=== PATIENT | male | born 1975 | race Caucasian/White ===

== ENCOUNTER 2021-03-11 11:08 | Emergency (ER) | payer OTHER, MEDICARE ==
[~2021-03-11] VITALS: Ht 172.7 cm; Wt 73.5 kg
--- NOTE | 2021-03-11 11:52 | PHYS DOC ---
Past History Additional Past Medical Histor: renal failure Past Surgical History: Other Additional Past Surgical Histo: kidney transplant, lasted 27 years, now failed, dialysis grafts General Adult EDM: Chief Complaint: SHORTNESS OF BREATH HPI: HPI: 46-year-old male presents with shortness of breath. He has been feeling more short of breath for the last couple of days. He is on dialysis due to failure of a kidney transplant. Transplant was 27 years ago. He had dialysis today but he still feels short of breath. He had a feeling like this once in the past and he had a pleural effusion. They drained it and told him not to worry about it. He never got official diagnosis as to why he had that effusion. Patient has elevated blood pressure but blood pressure medicines. He has been taking all his medicines as prescribed. He is not vaccinated against COVID-19. He has not previously had COVID-19. He does not believe he had a fever Review of Systems: Review of Systems: Constitutional: Denies fever or chills Eyes: Denies change in visual acuity HENT: Denies nasal congestion or sore throat Respiratory: shortness of breath Cardiovascular: Denies chest pain or edema GI: Denies abdominal pain, nausea, vomiting, bloody stools or diarrhea : Denies dysuria Musculoskeletal: Denies back pain or joint pain Integument: Denies rash Neurologic: Denies headache, focal weakness or sensory changes Endocrine: Denies polyuria or polydipsia Lymphatic: Denies swollen glands Psychiatric: Denies depression or anxiety Allergies: Allergies: Allergies Coded Allergies Type Severity Reaction Last Updated Verified shellfish derived Allergy Unknown 03/11/21 Yes Physical Exam: PE: Constitutional: Well developed, well nourished, no acute distress, non-toxic appearance. [] HENT: Normocephalic, atraumatic, bilateral external ears normal, oropharynx moist, no oral exudates, nose normal. [] Eyes: PERRLA, EOMI, conjunctiva normal, no discharge. [] Neck: Normal range of motion, no tenderness, supple, no stridor. [] Cardiovascular: Heart rate 83, regular rhythm, no murmur [] Lungs & Thorax: Diminished breath sounds left base [] Abdomen: Bowel sounds normal, soft, no tenderness, no masses, no pulsatile masses. [] Skin: Warm, dry, no erythema, no rash. [] Back: No tenderness, no CVA tenderness. [] Extremities: No tenderness, no cyanosis, no clubbing, ROM intact, no edema. [] Neurologic: Alert and oriented X 3, normal motor function, normal sensory function, no focal deficits noted. [] Psychologic: Affect normal, judgement normal, mood normal. [] Current Patient Data: Vital Signs: Vital Signs Date Time Temp Pulse Resp B/P (MAP) Pulse Ox O2 Delivery O2 Flow Rate FiO2 03/11/21 11:41 98.3 80 18 187/104 (131) 97 Room Air EKG: EKG: [] Radiology/Procedures: Radiology/Procedures: [] Impressions: EXAM: Chest, single view. HISTORY: Shortness of breath. COMPARISON: None. FINDINGS: A frontal view of the chest is obtained. There is diffuse right lower lobe predominant interstitial infiltrate. There are small right greater than left pleural effusions. There is cardiomegaly. There is a small nodular opacity overlying the lateral left lower lobe which is likely due to overlying osseous and pulmonary interstitial shadows. IMPRESSION: 1. Diffuse right lower lobe predominant interstitial infiltrate with small right greater than left pleural effusions. 2. Cardiomegaly. Electronically signed by: Cassidy Walters MD (03/11/2021 12:38 PM) [id number] DICTATED AND SIGNED BY: CASSIDY WALTERS MD DATE: 03/11/21 1237 CC: ELDER COPPOLA DO; ZOE GROSSMAN MD ~MTH0 0 Heart Score: C/O Chest Pain: N/A Risk Factors: Risk Factors: DM, Current or recent (<one month) smoker, HTN, HLP, family history of CAD, obesity. Risk Scores: Score 0 - 3: 2.5% MACE over next 6 weeks - Discharge Home Score 4 - 6: 20.3% MACE over next 6 weeks - Admit for Clinical Observation Score 7 - 10: 72.7% MACE over next 6 weeks - Early Invasive Strategies Course & Med Decision Making: Course & Med Decision Making Pertinent Labs and Imaging studies reviewed. (See chart for details) The patient's labs are significant for decreased white count and a hemoglobin of 8. I have no previous hemoglobins for comparison. The patient's chest x-ray does suggest pneumonia. I will treat him with Rocephin and azithromycin. I discussed the patient's results with him. He states that he believes he has anemia at baseline. He feels well enough to try to go home. I offered to transfer him to another facility that has dialysis available and further monitor his hemoglobin and likely pneumonia. He feels as though he would prefer to start antibiotic treatment and see if he can make it at home. If his condition worsens in any way he will return to the emergency room. He is stable for discharge at this time. [] Dragon Disclaimer: Dragon Disclaimer: This electronic medical record was generated, in whole or in part, using a voice recognition dictation system. Departure Departure: Impression: Primary Impression: Pneumonia involving right lung Qualified Codes: J18.9 - Pneumonia, unspecified organism Disposition: HOME / SELF CARE / HOMELESS Condition: STABLE Referrals: ZOE GROSSMAN MD (PCP) Patient Instructions: Pneumonia, Adult, [id number] Scripts Azithromycin (AZITHROMYCIN TABLET) 250 Mg Tablet 250 MG PO DAILY for ANTI-BIOTIC for 4 Days, #4 TAB 0 Refills start 03/12/2021 Prov: ELDER COPPOLA DO 03/11/21 ELDER COPPOLA DO Mar 11, 2021 11:51
[2021-03-11 12:33] LABS: BASO % 1 % (0-3); EOS # 0.1 x10^3/uL (0.0-0.7); EOS % 3 % (0-3); HEMATOCRIT 23.8 % (39.0-53.0); LYMPH # 0.4 x10^3/uL (1.0-4.8); LYMPH % 13 % (24-48); MEAN CORPUSCULAR HEMOGLOBIN 32 pg (25-35); MEAN CORPUSCULAR HGB CONC 34 g/dL (31-37); MEAN CORPUSCULAR VOLUME 94 fL (79-100); MONO # 0.3 x10^3/uL (0.0-1.1); MONO % 11 % (0-9); NEUT # 2.3 x10^3uL (1.8-7.7); NEUT % 73 % (31-73); PLATELET COUNT 163 x10^3/uL (140-400); RED BLOOD COUNT 2.52 x10^6/uL (4.30-5.70); RED CELL DISTRIBUTION WIDTH 15.8 % (11.5-14.5); WHITE BLOOD COUNT 3.1 x10^3/uL (4.0-11.0)
--- NOTE | 2021-03-11 12:41 | RAD ---
EXAM: Chest, single view. HISTORY: Shortness of breath. COMPARISON: None. FINDINGS: A frontal view of the chest is obtained. There is diffuse right lower lobe predominant inte rstitial infiltrate. There are small right greater than left pleural effusions. There is cardiomegaly . There is a small nodular opacity overlying the lateral left lower lobe which is likely due to overl neha osseous and pulmonary interstitial shadows. IMPRESSION: 1. Diffuse right lower lobe predominant interstitial infiltrate with small right greater than left pl eural effusions. 2. Cardiomegaly. Electronically signed by: Cassidy Walters MD (03/11/2021 12:38 PM) [id number]
[2021-03-11 12:51] LABS: ANION GAP 10 (6-14); BLOOD UREA NITROGEN 10 mg/dL (8-26); BUN/CREATININE RATIO 2 (6-20); CALCIUM 8.6 mg/dL (8.5-10.1); CARBON DIOXIDE 31 mmol/L (21-32); CHLORIDE 100 mmol/L (98-107); CREATININE 4.6 mg/dL (0.7-1.3); GFR 13.9; GLUCOSE 85 mg/dL (70-99); POTASSIUM 3.5 mmol/L (3.5-5.1); SODIUM 141 mmol/L (136-145)
--- NOTE | 2021-03-11 12:58 | EKG ---
[address] [address] Test Date: 2021-03-11 Test Time: 11:27:53 Pat Name: TARUN ALAN Department: Room: Gender: M Infectious Diseases Physician: ENRIQUETA : [id number] Requested By: ELDER COPPOLA Order Number: [id number] Reading MD: Ronn Rocha Measurements Intervals [place] Rate: 74 P: 0 RI: 138 QRS: 11 QRSD: 98 T: 92 QT: 412 QTc: 458 Interpretive Statements SINUS RHYTHM LEFT ATRIAL ABNORMALITY NONSPECIFIC ST T WAVE CHANGES Electronically Signed On 03-14-2021 10:14:37 [employer] by Ronn Rocha
[2021-03-11 13:00] LABS: ALBUMIN/GLOBULIN RATIO 0.9 (1.0-1.7); ALK PHOS 91 U/L (46-116); ALT (SGPT) 11 U/L (16-63); AST (SGOT) 19 U/L (15-37); TOTAL BILIRUBIN 0.9 mg/dL (0.2-1.0); TOTAL PROTEIN 6.5 g/dL (6.4-8.2)
[2021-03-11] MEDS ORDERED: AZITHROMYCIN 250 MG TABLET. PO ONE (13:00)
[2021-03-11] MEDS ORDERED: cefTRIAXone SODIUM 1 GM VIAL ONE (13:55)
[2021-03-11] MEDS ORDERED: IV NORMAL SALINE 50ML 50 ML ONE (13:55)
[2021-03-11] MEDS ORDERED: AZIT250T6 PO (13:56)
[2021-03-11 14:08] VITALS: BP 162/92
== END 2021-03-11 14:25 | disposition home or self-care (01) ==
LOC: ER 11:08
DX: J18.9 Pneumonia, unspecified organism (principal); Z20.822 Contact with and (suspected) exposure to COVID-19
CPT/HCPCS: 36415; 71045; 80053; 83880; 85025; 93005; 96365; 99285; C9803; J0696; U0003